=== PATIENT | female | born 1965 | race Caucasian/White ===

== ENCOUNTER → 2016-05-03 | Outpatient (CLI) | payer BC ==
[~2016-05-03] MED LIST: AMLO10TA82 PO; BISO1TAB40 PO; CARV25TA30 PO; GABA800T2 PO; IRBE300T42 PO; METF500T4 PO; MTP25TSR PO; NISO17TA PO; VALS1TAB14 PO
--- NOTE | 2016-05-03 15:33 | Diagnostic Imaging Report ---
PROCEDURE: US Breast limited, left. TECHNIQUE: Multiple realtime grayscale images were obtained over the left breast in various projections. INDICATION: Diagnostic left breast mammograms and targeted left breast ultrasound to further evaluate an abnormality noted on recent screening mammography. COMPARISON: April 04, 2016, February 21, 2015, and April 12, 2013. The current study was also evaluated with a Computer Aided Detection (CAD) system. FINDINGS: True lateral and spot compression digital mammographic views of the left breast were obtained. The previously questioned asymmetry within the middle depth of the superior left breast seen on the MLO view only appears to partially efface and be less prominent on some of the spot compression views, though appears to persist on other spot compression views; however, when comparing to the prior examinations from 2012, there is suggestion that this may have been present. No additional suspicious mass, microcalcifications, or architectural distortion. Targeted ultrasound of the superior left breast was performed. Within the left breast at 10 o'clock, there is a 0.5 x 0.3 x 0.4 cm lobulated thin-walled cystic lesion with minimal internal echoes and thin septations. No internal vascularity. No additional suspicious cystic or solid mass lesion identified. IMPRESSION: Septated complicated cyst within the left breast at 10 o'clock likely corresponds to the mammographic asymmetry. This is probably benign. Follow-up left breast mammogram and ultrasound in six months is recommended to monitor stability. ACR BI-RADS Category 3: Probably benign findings, left breast mammogram and ultrasound is recommended in six months. Result letter will be mailed to the patient. Follow-up: Diagnostic left breast mammograms and ultrasound recommended in six months. NOTE: Keep in mind that about 10% of breast cancers will not be identified on mammography. Further evaluation of a palpable mass not seen on mammography should be based on clinical grounds. Dictated by: Dictated on workstation # [id number]
== END ==
LOC: RAD 13:46
PROVIDERS: ATTEND Family Medicine
DX: R92.2 Inconclusive mammogram (principal); N60.02 Solitary cyst of left breast
CPT/HCPCS: 76642; G0206